=== PATIENT | female | born 1975 | race Two or more races ===

== ENCOUNTER 2017-11-28 07:44 | Outpatient (CLI) | payer OTHER | END 2017-11-28 07:58 | disposition home or self-care (01) | LOC: NUCLEAR 07:44 | DX: I82.493 Acute embolism and thrombosis of other specified deep vein of lower extremity, bilateral (principal) ==

== ENCOUNTER 2020-12-22 08:25 | Outpatient (CLI) | payer OTHER | END 2020-12-22 12:58 | disposition home or self-care (01) | LOC: NUCLEAR 08:25 | DX: I82.543 Chronic embolism and thrombosis of tibial vein, bilateral (principal) ==

== ENCOUNTER 2023-10-30 06:00 | Day surgery (SDC) | payer OTHER ==
[2023-10-24 09:10] LABS: HEMATOCRIT 43.2 % (36.0-45.00); MEAN CELL VOLUME 99.1 fL (80.00-100.00); MEAN CORPUSCULAR HEMOGLOBIN 34.4 pg (27.00-32.0); MEAN CORPUSCULAR HGB CONC 34.7 g/dl (32.0-36.0); PLATELET COUNT 406 K/uL (150-450); RED BLOOD COUNT 4.36 M/uL (4.00-6.00); RED CELL DISTRIBUTION WIDTH 13.8 % (11.5-14.5)
[2023-10-24 09:11] LABS: PH,URINE 6.5 (5.0-8.0); URINE APPEARANCE Clear; URINE BILIRRUBIN Negative (NEGATIVE); URINE BLOOD Negative; URINE COLOR Yellow; URINE GLUCOSE Negative (NEGATIVE); URINE LEUKOCYTE Small; URINE NITRATE Negative; URINE PROTEIN Negative (NEGATIVE); URINE UROBILINOGEN 0.2 E.U./dl
[2023-10-24 09:15] LABS: URINE BACTERIA 1056.9 uL (0.0-1933); URINE EPITHELIAL CELLS 52.5 uL (0.0-38.8); URINE RBC 6.6 uL (0.0-20.8); URINE WBC 16.8 uL (0.0-23.2)
[2023-10-24 09:29] LABS: INR 0.95; PARTIAL THROMBOPLASTIN TIME 28.4 SECONDS (22.0-34.0)
[2023-10-24 09:43] LABS: ALBUMIN 4.1 gm/dL (3.4-5.0); BILIRUBIN TOTAL 0.69 mg/dL (0.3-1.2); CALCIUM 9.9 mg/dL (8.5-10.1); CREATININE SERUM 0.62 mg/dL (0.55-1.02); GFR 101.89; GLOBULINA 3.7 G/DL (2.4-3.5); POTASSIUM 3.92 mEq/L (3.5-5.1); TOTAL PROTEIN 7.8 gm/dL (6.4-8.2); TSH 1.62 uIU/mL (0.358-3.74)
[2023-10-30] MEDS ORDERED: CEFOXITIN SODIUM 2,000 MG VIAL IV ONE ×2 (07:46→09:30)
[2023-10-30] MEDS ORDERED: POVIDONE-IODINE 118 ML BOTT TOP ONE ×2 (08:32→09:45)
[2023-10-30] MEDS ORDERED: MORPHINE SULFATE 4 MG/ML VIAL IV PRN (09:45)
[2023-10-30] MEDS ORDERED: PROMETHAZINE HCL 50 MG/ML AMPUL IM ONE (09:45)
[2023-10-30] MEDS ORDERED: NAPR500T14 PO (09:47)
[2023-10-30] MEDS ORDERED: MORGIDOX100 MG PO (09:47)
[2023-10-30] MEDS ORDERED: DIPHENHYDRAMINE HCL 50 MG/ML VIAL 1ML ONE (10:30)
[2023-10-30] MEDS ORDERED: DIPHENHYDRAMINE HCL 50 MG/ML VIAL 1ML IV ONE (10:30)
== END 2023-10-30 14:30 | disposition home or self-care (01) ==
LOC: CIR.AMB 06:00
PROVIDERS: ATTEND Obstetrics & Gynecology
DX: D25.0 Submucous leiomyoma of uterus (principal); N95.0 Postmenopausal bleeding; N84.0 Polyp of corpus uteri; Z88.8 Allergy status to other drugs, medicaments and biological substances; Z91.018 Allergy to other foods